=== PATIENT | female | born 1990 | race Hispanic/Latino ===

== ENCOUNTER 2021-02-23 13:41 | Observation (INO) | payer OTHER, MEDICAID ==
[~2021-02-23] VITALS: Ht 154.9 cm; Wt 63.0 kg
[2021-02-23 13:43] VITALS: BP 121/85
[2021-02-23] MEDS ORDERED: LACTATED RINGERS 1000ML 1,000 ML IV ONE (15:23)
[2021-02-23 15:24] LABS: APPEARANCE,URINE CLOUDY (CLEAR); BILIRUBIN,URINE NEGATIVE (NEGATIVE); COLOR,URINE YELLOW (YELLOW); GLUCOSE, URINE (UA) NEGATIVE (NEGATIVE); KETONES,URINE NEGATIVE (NEGATIVE); LEUKOCYTE ESTERASE ,URINE TRACE (NEGATIVE); NITRATE,URINE NEGATIVE (NEGATIVE); OCCULT BLOOD,URINE NEGATIVE (NEGATIVE); PH,URINE 7.5 (5.0-8.0); PROTEIN,URINE NEGATIVE (NEGATIVE); UROBILINOGEN,URINE 0.2 mg/dL (0.2-1.0)
[2021-02-23 15:30] LABS: RBC,URINE 0-1 /HPF (0-1)
[2021-02-23 15:31] LABS: AMORPHOUS SEDIMENT,UR Rare /LPF (None Seen); BACTERIA,URINE Moderate /HPF (None Seen); SQUAMOUS EPITHELIAL CELL,UR Moderate /HPF (0-2)
[2021-02-23 15:32] LABS: AMPHET/METH SCREEN,URINE NEGATIVE (NEGATIVE); BARBITURATE SCREEN, URINE NEGATIVE (NEGATIVE); BENZODIAZEPINES SCREEN,URINE NEGATIVE (NEGATIVE); CANNABINOID SCREEN,URINE NEGATIVE (NEGATIVE); COCAINE SCREEN,URINE NEGATIVE (NEGATIVE); OPIATE SCREEN,URINE NEGATIVE (NEGATIVE); PHENCYCLIDINE SCREEN,URINE NEGATIVE (NEGATIVE)
[2021-02-23] MEDS ORDERED: MAGNESIUM 4GM PREMIX 100ML 100 ML IV ONE (17:24)
[2021-02-23] MEDS: LACTATED RINGERS 1000ML 1,000 ML IV PRN ×3 (17:27→19:54)
[2021-02-23] MEDS ORDERED: MAGNESIUM 4GM PREMIX 100ML 100 ML IV SCH (17:30)
[2021-02-23] MEDS ORDERED: CELESTONE SOLUSPAN 6 MG/ML 5ML VIAL IM SCH (17:30)
[2021-02-23] MEDS ORDERED: CALCIUM GLUC 1GM/10ML VIAL IV PRN (17:30)
[2021-02-23 17:53] LABS: HEMATOCRIT 30.3 % (36-48); MEAN CORPUSCULAR HEMOGLOBIN 28.7 pg (27.0-33.0); MEAN CORPUSCULAR HGB CONC 32.3 g/dL (32.0-36.0); MEAN CORPUSCULAR VOLUME 88.6 fL (79-99); RED BLOOD CELL COUNT(AUTO) 3.42 MIL/uL (4.00-5.50); RED CELL DISTRIBUTION WIDTH 12.6 % (11.0-15.5); WHITE BLOOD COUNT (AUTO) 9.5 K/uL (4.8-10.8)
[2021-02-23] MEDS: CLINDAMYCIN IVPB 600MG/50ML 50 ML IV SCH (18:00)
[2021-02-23] MEDS: MAGNESIUM SULFATE 40GM/1000ML 1,000 ML IV PRN (18:00)
[2021-02-23 18:49] LABS: AMPHET/METH SCREEN,URINE NEGATIVE (NEGATIVE); BARBITURATE SCREEN, URINE NEGATIVE (NEGATIVE); BENZODIAZEPINES SCREEN,URINE NEGATIVE (NEGATIVE); CANNABINOID SCREEN,URINE NEGATIVE (NEGATIVE); COCAINE SCREEN,URINE NEGATIVE (NEGATIVE); OPIATE SCREEN,URINE NEGATIVE (NEGATIVE); PHENCYCLIDINE SCREEN,URINE NEGATIVE (NEGATIVE)
[2021-02-24] MEDS ORDERED: CITRIC ACID/SODIUM CITRATE 30 ML UDCUP PO SCH
[2021-02-24] MEDS: CLINDAMYCIN IVPB 600MG/50ML 50 ML IV SCH ×2 (02:12→11:29)
[2021-02-24] MEDS ORDERED: MAG/ALUM/SIMETH 30 ML UDCUP PO PRN (08:00)
[2021-02-24 10:02] LABS: RAPID PLASMA REAGIN NONREACTIVE (NONREACTIVE)
[2021-02-24] MEDS: LACTATED RINGERS 1000ML 1,000 ML IV PRN (11:29)
[2021-02-24] MEDS: MAGNESIUM SULFATE 40GM/1000ML 1,000 ML IV PRN (11:30)
[2021-02-25 08:15] LABS: HEPATITIS Bs ANTIGEN SCREEN P Negative (Negative)
== END 2021-02-25 09:30 | disposition home or self-care (01) ==
LOC: EDH 13:41 → LDH 13:42
PROVIDERS: ADMIT Obstetrics & Gynecology; ATTEND Obstetrics & Gynecology
DX: O26.893 Other specified pregnancy related conditions, third trimester (principal); R10.13 Epigastric pain; Z79.899 Other long term (current) drug therapy; Z3A.31 31 weeks gestation of pregnancy
CPT/HCPCS: 36415; 59025; 76705; 76805; 80305 ×2; 81001; 85027; 86592; 86701; 86850; 86900; 86901; 87088; 87340; 87390; 96361 ×3; 96365; 96366 ×3; 96368; 96372; G0378 ×40; J0702; J3475 ×4; J3490 ×4; J7120 ×4; 96360

== ENCOUNTER 2021-04-18 06:08 | Inpatient (IN) | payer OTHER, MEDICAID ==
[~2021-04-18] VITALS: Ht 154.9 cm; Wt 80.7 kg
[2021-04-18] MEDS ORDERED: ROPIVACAINE 0.2% 100ML VIAL 100 ML EP SCH (06:30)
[2021-04-18] MEDS ORDERED: NALOXONE HCL 0.4 MG/1 ML ML IV PRN (06:30)
[2021-04-18] MEDS ORDERED: EPHEDRINE SULFATE 50 MG/ML AMPULE IVP PRN (06:30)
[2021-04-18] MEDS ORDERED: PROMETHAZINE HCL 25 MG/ML 1ML AMPULE IM PRN (06:30)
[2021-04-18] MEDS ORDERED: LACTATED RINGERS 1000ML 1,000 ML IV PRN (06:30)
[2021-04-18] MEDS ORDERED: MEPERIDINE-PF 50 MG/ML SYG IVP PRN (06:30)
[2021-04-18] MEDS ORDERED: LACTATED RINGERS 500 ML 500 ML IV PRN (06:30)
[2021-04-18 06:50] LABS: BILIRUBIN,URINE Negative (NEGATIVE); COLOR,URINE Yellow (YELLOW); GLUCOSE, URINE (UA) Negative (NEGATIVE); KETONES,URINE Negative (NEGATIVE); LEUKOCYTE ESTERASE ,URINE Moderate (NEGATIVE); NITRATE,URINE Negative (NEGATIVE); OCCULT BLOOD,URINE Negative (NEGATIVE); PH,URINE 6.5 (5.0-8.0); PROTEIN,URINE Negative (NEGATIVE)
[2021-04-18 06:51] LABS: APPEARANCE,URINE SLIGHTLY CLOUDY (CLEAR)
[2021-04-18 07:00] LABS: BACTERIA,URINE Few /HPF (None Seen); RBC,URINE None Seen /HPF (0-1); SQUAMOUS EPITHELIAL CELL,UR Moderate /HPF (0-2)
[2021-04-18 07:28] VITALS: BP 108/60
[2021-04-18] MEDS ORDERED: PREN-196 PO (07:28)
[2021-04-18] MEDS: OXYTOCIN-LR 20 UNITS/1000 ML 1,000 ML IV SCH ×2 (07:40→12:18)
[2021-04-18 08:09] LABS: HEMATOCRIT 29.3 % (36-48); MEAN CORPUSCULAR HEMOGLOBIN 26.2 pg (27.0-33.0); MEAN CORPUSCULAR HGB CONC 32.4 g/dL (32.0-36.0); MEAN CORPUSCULAR VOLUME 80.9 fL (79-99); RED BLOOD CELL COUNT(AUTO) 3.62 MIL/uL (4.00-5.50); RED CELL DISTRIBUTION WIDTH 13.9 % (11.0-15.5); WHITE BLOOD COUNT (AUTO) 7.5 K/uL (4.8-10.8)
[2021-04-18] MEDS ORDERED: ACETAMINOPHEN WITH CODEINE 1 TAB TAB PO PRN (12:30)
[2021-04-18] MEDS ORDERED: BENZOCAINE/LANOLIN/ALOE VERA 60 ML AEROSOL TP PRN (12:30)
[2021-04-18] MEDS ORDERED: LANOLIN 30GM OINTMENT TP PRN (12:30)
[2021-04-18] MEDS ORDERED: OXYTOCIN-LR 20 UNITS/1000 ML 1,000 ML IV SCH (12:30)
[2021-04-18] MEDS ORDERED: DIPH,PERTUSS(ACELL),TET VAC/PF 0.5 ML VIAL IM PRN (12:30)
[2021-04-18] MEDS ORDERED: ACETAMINOPHEN 325 MG TAB PO PRN (12:30)
[2021-04-18] MEDS ORDERED: MEASLES/MUMPS/RUBELLA VACCINE, LIVE 0.5 ML/VIAL SQ PRN (12:30)
[2021-04-18] MEDS ORDERED: WITCH HAZEL 1 PAD TP PRN (12:30)
[2021-04-18] MEDS: IBUPROFEN 600 MG TABLET PO PRN ×2 (14:05→23:38)
[2021-04-18 16:00] VITALS: BP 112/72
[2021-04-18 19:15] VITALS: BP 108/66
[2021-04-18] MEDS: DOCUSATE SODIUM 100 MG CAP PO SCH (20:56)
[2021-04-18 23:34] VITALS: BP 93/56
[2021-04-19 04:13] VITALS: BP 99/61
[2021-04-19 06:08] LABS: HEPATITIS Bs ANTIGEN SCREEN P Negative (Negative)
[2021-04-19 07:30] VITALS: BP 117/82
[2021-04-19] MEDS: IBUPROFEN 600 MG TABLET PO PRN (07:30)
[2021-04-19] MEDS: DOCUSATE SODIUM 100 MG CAP PO SCH (09:00)
== END 2021-04-19 13:06 | disposition home or self-care (01) | DRG 807 ==
LOC: LDH 06:08 → WSH 17:46 → UNDODISIN 04-19 13:06
PROVIDERS: ADMIT Specialist; ATTEND Specialist
PROC: 10E0XZZ Delivery of Products of Conception, External Approach (ICD-10-PCS; principal; 2021-04-18)
PROC: 0KQM0ZZ Repair Perineum Muscle, Open Approach (ICD-10-PCS; 2021-04-18)
PROC: 3E033VJ Introduction of Other Hormone into Peripheral Vein, Percutaneous Approach (ICD-10-PCS; 2021-04-18)
PROC: 10907ZC Drainage of Amniotic Fluid, Therapeutic from Products of Conception, Via Natural or Artificial Opening (ICD-10-PCS; 2021-04-18)
PROC: 3E0R3BZ Introduction of Anesthetic Agent into Spinal Canal, Percutaneous Approach (ICD-10-PCS; 2021-04-18)
PROC: 00HU33Z Insertion of Infusion Device into Spinal Canal, Percutaneous Approach (ICD-10-PCS; 2021-04-18)
PROC: 3E0234Z Introduction of Serum, Toxoid and Vaccine into Muscle, Percutaneous Approach (ICD-10-PCS; 2021-04-18)
PROC: 3E0134Z Introduction of Serum, Toxoid and Vaccine into Subcutaneous Tissue, Percutaneous Approach (ICD-10-PCS; 2021-04-18)
DX: O69.81X0 Labor and delivery complicated by cord around neck, without compression, not applicable or unspecified (principal); Z37.0 Single live birth; O70.1 Second degree perineal laceration during delivery; Z23 Encounter for immunization; Z88.8 Allergy status to other drugs, medicaments and biological substances; Z3A.39 39 weeks gestation of pregnancy
CPT/HCPCS: 36415; 81001; 85027; 86592; 86850; 86900; 86901; 87088; 87340; 90707; 90715; A4314; G0378; J2590; J2795